=== PATIENT | male | born 1985 | race Caucasian/White ===

== ENCOUNTER 2023-03-01 04:00 | Day surgery (SDC) | payer OTHER ==
[2023-03-01] VITALS (219 sets, daily range): BP systolic 69–136; BP diastolic 29–99
[~2023-03-01] VITALS: Ht 180.3 cm; Wt 106.6 kg
--- NOTE | 2023-03-01 07:05 | NUR ---
PT HAS ARRIVED TO [facility] SUITES WITH MOM, BOTH ESCORTED TO ROOM. POC HAS BEEN EXPLANED AND ALL QUESTIONS HAVE BEEN ADDRESSED. PT IS A&OX3, NAD, FOLLOWS COMMANDS APPROPRIATELY. HAS NO COMPLAINTS AT THIS TIME. CALL LIGHT HAS BEEN PROVIDED. PT ATTATCHED TO MONITORS.
[2023-03-01] MEDS ORDERED: XANAX1 MG PO (08:02)
[2023-03-01 08:57] LABS: BASO% 0.7 % (0-3); EOS% 1.9 % (0-8); HEMATOCRIT 39.8 % (39.0-50.0); HEMOGLOBIN 13.7 g/dl (14.0-18.0); IMMATURE GRANULOCYTES 0.2 % (0.0-5.0); LYMPH% 36.5 % (15-41); MEAN CELL VOLUME 87.7 fL CALC (80.0-100.0); MEAN CORPUSCULAR HGB 30.2 pG CALC (26.0-32.0); MEAN CORPUSCULAR HGB CONC 34.4 g/dL CAL (32.0-36.0); MONO% 11.3 % (2-13); NEUT# 2.06 thou/uL (1.82-7.42); NEUT% 49.4 % (42-76); RED BLOOD COUNT 4.54 mill/uL (4.70-6.10); RED CELL DISTRI WIDTH 11.3 % (11.5-15.5)
[2023-03-01 09:04] LABS: ALBUMIN 3.6 g/dL (3.2-5.0); ALKALINE PHOSPHATASE 73 u/l (38-126); ANION GAP 8 (6-22 (CALC)); BILIRUBIN, TOTAL 0.2 mg/dL (0.2-1.3); BUN 20 mg/dL (9-20); BUN/CREATININE RATIO 29 (12-20 (CALC)); CARBON DIOXIDE 27 mmol/l (22-30); CHLORIDE 105 mmol/l (95-108); CREATININE 0.7 mg/dL (0.7-1.3); GFR FOR AFR.AMER. > 60 ML/MIN (>=60 (CALC)); GFR OTHER RACES > 60 ML/MIN (>=60 (CALC)); POTASSIUM 4.5 mmol/l (3.5-5.1); SGOT/AST 24 u/l (17-59); SODIUM 136 mmol/l (137-146); TOTAL PROTEIN 5.7 g/dL (6.3-8.2)
--- NOTE | 2023-03-01 11:07 | NUR ---
Induction Note Patient to [facility] procedure room. Time out performed at 1107. Patient placed on monitors, Radha hugger, bilateral wrist restraints applied for ET tube protection. Versed 5mg given IV push at 1108 Tourniquet applied to RIGHT arm Lidocaine 100mg given at 1109 IV push followed by Rocoronium 10mg at 1110 IV push and held for 90 seconds. Propofol bolus of 180mg given at 1112 IV push. Succinylcholine 80mg given IV push at 1113. Smooth intubation with 7.5 ETT. Positive CO2. Positive Auscultation for air exchange. Patient placed on ventilator for spontaneous ventilation. Placed on Propofol IV drip at 1114. OG inserted. Positive air on auscultation. Positive gastric content. Stomach washed at this time.
--- NOTE | 2023-03-01 11:25 | NUR ---
OG close note Stomach washed at this time. Naltrexone 50 mg with Clonidine 0.1 mg via OG tube. OG will be clamped for 45 minutes.
--- NOTE | 2023-03-01 12:10 | NUR ---
OG open note OG open at this time. Gastric content draining into drainage bag. OG to drain for 45 minutes. Propofol will be titrated down based on patient.
--- NOTE | 2023-03-01 13:00 | NUR ---
OG close note Stomach washed at this time. Naltrexone 50 mg with Clonidine 0.1 mg via OG tube. OG will be clamped for 45 minutes.
--- NOTE | 2023-03-01 14:35 | NUR ---
OG close note Stomach washed at this time. Naltrexone 50 mg with Clonidine 0.1 mg via OG tube. OG will be clamped for 45 minutes.
[2023-03-01] MEDS ORDERED: CLONIDINE0.1 MG PO (15:01)
[2023-03-01] MEDS ORDERED: NALTREXONE50 MG PO (15:01)
[2023-03-01] MEDS ORDERED: KLONOPIN2 MG PO (15:02)
--- NOTE | 2023-03-01 16:20 | NUR ---
OG close note Stomach washed at this time. Naltrexone 12.5 mg with Clonidine 0.1 mg via OG tube. OG will be clamped for 45 minutes.
--- NOTE | 2023-03-01 18:04 | NUR ---
Extubation note Closing medications given Benadryl 50mg IV push, Decadron 10mg IV push,Magnesium 4 grams IV, Zofran 8mg IV push, Octreotide 100mcg SC. Stomach washed out prior to extubation. Suctioned gastric content. OG removed. Patient extubated. Propofol Discontinued. Wrist restraints removed. Radha hugger Removed. See [facility] Moderate sedate recovery record for further notes and assessment.
--- NOTE | 2023-03-01 18:30 | NUR ---
PATIENT RECEIVED TO ROOM 283. SBAR RECEIVED FROM SCAR PETE. PATIENT RESTING QUIETLY. BLOOD PRESSURE LOW 88/46; 500ML LR BOLUS STARTED. OXYGEN AT 2L/NC, NO DISTRESS NOTED.
--- NOTE | 2023-03-01 18:49 | NUR ---
PT HAS BEEN TRANSFERRED TO MS[facility], PT IS AWAKE AND IS ABLE TO MAKE HIS NEEDS KNOWN. PT IS ON 2LNC, PT HAS LR INFUSING. PT VS ASSESSED. NAD. PT BED ALARM ACTIVE. PT REPORT GIVEN TO SCAR HELMS.
--- NOTE | 2023-03-01 19:34 | NUR ---
PATIENT AWAKE, DROWSY. ASSISTED TO RESTROOM, 2 PERSON ASSIST. LARGE, HARD BM NOTED. TRANSFERED BACK TO BED. ALARM ACTIVATED.
--- NOTE | 2023-03-02 00:51 | NUR ---
ASSISTED TO BEDSIDE FOR URINAL USE.
--- NOTE | 2023-03-02 02:20 | NUR ---
PATIENT RESTLESS. UNCONTROLLABLE YELLING AND JERKING, ATIVAN 2MG GIVEN.
[2023-03-02 03:42] VITALS: BP 114/58
--- NOTE | 2023-03-02 03:54 | NUR ---
PATIENT IN BED, REMAINS RESTLESS. MILD UNCONTROLLABLE JERKING, NOTED. NO C/O PAIN AT THIS TIME. JUNIOR SYSTEMS ADMINISTRATOR MEDS ADMINISTERED WITHOUT DIFFICULTLY. BED ALARM ACTIVE.
[2023-03-02 05:14] LABS: BASO% 0.2 % (0-3); HEMATOCRIT 41.2 % (39.0-50.0); HEMOGLOBIN 13.8 g/dl (14.0-18.0); IMMATURE GRANULOCYTES 0.3 % (0.0-5.0); LYMPH% 9.5 % (15-41); MEAN CELL VOLUME 88.2 fL CALC (80.0-100.0); MEAN CORPUSCULAR HGB 29.6 pG CALC (26.0-32.0); MEAN CORPUSCULAR HGB CONC 33.5 g/dL CAL (32.0-36.0); MONO% 3.6 % (2-13); NEUT# 5.56 thou/uL (1.82-7.42); NEUT% 86.4 % (42-76); RED BLOOD COUNT 4.67 mill/uL (4.70-6.10); RED CELL DISTRI WIDTH 11.5 % (11.5-15.5)
[2023-03-02 05:32] LABS: ALKALINE PHOSPHATASE 79 u/l (38-126); BUN 14 mg/dL (9-20); BUN/CREATININE RATIO 19 (12-20 (CALC)); CARBON DIOXIDE 24 mmol/l (22-30); CHLORIDE 108 mmol/l (95-108); CREATININE 0.7 mg/dL (0.7-1.3); GFR FOR AFR.AMER. > 60 ML/MIN (>=60 (CALC)); GFR OTHER RACES > 60 ML/MIN (>=60 (CALC)); MAGNESIUM 2.2 mg/dL (1.6-2.3); POTASSIUM 3.6 mmol/l (3.5-5.1); SGOT/AST 39 u/l (17-59); TOTAL PROTEIN 6.4 g/dL (6.3-8.2)
[2023-03-02 05:39] LABS: ANION GAP 15 (6-22 (CALC)); BILIRUBIN, TOTAL 0.6 mg/dL (0.2-1.3); SODIUM 143 mmol/l (137-146)
--- NOTE | 2023-03-02 07:15 | NUR ---
PERFORMED BEDSIDE REPORT WITH NIGHTSHIFT NURSE. PT LAYING SPRAWLED OUT IN THE BED. PT RESPONDS TO SPEECH AND SLIGHT STIMULI OF RUBBING ARM OR CHEST. SPEECH IS GARBLED AT THIS TIME. PT SHOWS SIGNS OF MILD AGITATION. SHAKES/TREMORS ARE PRESENT AND PT DOES COMPLAIN OF NAUSEA AND PAIN. WILL FOLLOW UP WITH MEDICATION PER ORDERS. LUNG SOUNDS ARE CLEAR AND HEART SOUND WNL. VITAL SIGNS STABLE. CALL LIGHT WITHIN REACH AND SAFETY PRECAUTIONS IN PLACE.
[2023-03-02 07:27] VITALS: BP 114/58
--- NOTE | 2023-03-02 13:54 | NUR ---
GOT PT UP SITTING UP ON THE SIDE OF THE BED. PT WAS ABLE TO EAT SOME CHICKEN NOODLE SOUP AND FINISHED A CHOCOLATE PUDDING. PT STILL SHOWING SOME SIGNS OF UNCOORDINATION WITH EXTREMETIES. PT THEN ABLE TO STAND ON OWN STABLE. HOWEVER WALKING PT GAIT IS STILL UNSTEADY. PT GOT SHOWER, USED BATHROOM AND HAD LARGE BM. HAD TO ASSIST PT WITH DRESSING AND AMBULATING INTO CHAIR. PT IS SITTING UP IN CHAIR BUT COMPLAINS OF FEELING VERY WEAK AND TIRED AT THIS POINT. ALLOWING PT TO REST RIGHT NOW IN CHAIR. CALL LIGHT WITHIN REACH AND SAFETY PRECAUTIONS IN PLACE.
--- NOTE | 2023-03-02 15:55 | NUR ---
TOOK PT ON TWO WALKS IN THE HALLWAY. PT AMBULATED WELL, DID HAVE TO KEEP REMINDING PT KEEP UPRIGHT. PT NOW SITTING UP ON SIDE OF BED EATING PUDDING. PT IS A/OX3, SPEECH IS MORE CLEAR. D/C MEDICATIONS ADMINNISTERED. EDUCATED PT ON D/C TIMING. CALL LIGHT WITHIN REACH AND SAFETY PRECAUTIONS IN PLACE.
--- NOTE | 2023-03-02 16:47 | NUR ---
Discharge instructions given. Patient verbalizes understanding of same. Discharged in stable condition via Wheelchair to Home with staff. All belongings sent with pt. IV site discontinued, cath intact. No edema , no redness, voices no discomfort.
== END 2023-03-02 16:35 | disposition home or self-care (01) | DRG 897 ==
LOC: MS2 04:00 → ANR 04:00
PROVIDERS: ATTEND Anesthesiology Critical Care Medicine
DX: F11.20 Opioid dependence, uncomplicated (principal)
CPT/HCPCS: J2060; J2354; J3475